=== PATIENT | male | born 1955 | race Caucasian/White ===

== ENCOUNTER 2018-10-08 12:48 | Emergency (ER) | payer MEDICARE, OTHER ==
[~2018-10-08] VITALS: Ht 172.7 cm; Wt 68.0 kg
[2018-10-08 13:11] VITALS: BP 101/67
--- NOTE | 2018-10-08 13:14 | NUR ---
[facility] SPECIMEN CUP PROVIDED. PATIENT SENT TO LOBBY TO WAIT FOR AVAILABLE BED.
[2018-10-08 13:58] LABS: APPEARANCE,URINE CLEAR (CLEAR); BILIRUBIN,URINE NEGATIVE (NEGATIVE); BLOOD, URINE TRACE-L (NEGATIVE); COLOR,URINE YELLOW (YELLOW); LEUKOCYTE ESTERASE ,URINE NEGATIVE (NEGATIVE); NITRITE, URINE NEGATIVE (NEGATIVE); UGLUCOSE NEGATIVE (NEGATIVE)
[2018-10-08 15:25] LABS: RBC,URINE 0-5 /HPF (0-5); WBC,URINE 0-5 /HPF (0-5)
--- NOTE | 2018-10-08 15:37 | NUR ---
Pt taken to bed 12.
[2018-10-08] MEDS ORDERED: MORPHINE SULFATE 4 MG/ML SYR IM ONE (16:10)
[2018-10-08] MEDS ORDERED: KETOROLAC 60 MG/2 ML VIAL IM ONE (16:10)
--- NOTE | 2018-10-08 16:55 | NUR ---
pt to ct via w[facility]
--- NOTE | 2018-10-08 16:55 | NUR ---
c/o worsening right sided lower back pain over 1 wk---denies any one recent incident that may have caused pain---denies incontinence, ambulatory with slow steady gait
--- NOTE | 2018-10-08 18:28 | NUR ---
Patient discharged with v/s stable. Written and verbal after care instructions given and explained. Patient alert, oriented and verbalized understanding of instructions. Ambulatory with steady gait. All questions addressed prior to discharge. ID band removed. Patient advised to follow up with PMD. Rx of TRAMADOL/COLACE given. Patient educated on indication of medication including possible reaction and side effects. Opportunity to ask questions provided and answered. CT READ HANDED TO PT
[2018-10-08 18:31] VITALS: BP 131/81
== END 2018-10-08 18:28 | disposition home or self-care (01) ==
LOC: MED 12:48
DX: M54.41 Lumbago with sciatica, right side (principal); M47.896 Other spondylosis, lumbar region; M51.36 Other intervertebral disc degeneration, lumbar region
CPT/HCPCS: 72131; 81001; 96372; 99284; J1885; J2270

== ENCOUNTER 2022-02-01 10:24 | Emergency (ER) | payer MEDICARE, OTHER ==
[~2022-02-01] VITALS: Ht 172.7 cm; Wt 64.1 kg
[2022-02-01 10:26] VITALS: BP 132/80
[2022-02-01] MEDS ORDERED: BENZ200C4 PO (11:54)
[2022-02-01] MEDS ORDERED: SUD30 PO (11:54)
[2022-02-01 11:59] VITALS: BP 143/70
== END 2022-02-01 11:59 | disposition home or self-care (01) ==
LOC: MED 10:24
DX: J06.9 Acute upper respiratory infection, unspecified (principal); Z20.822 Contact with and (suspected) exposure to COVID-19; Z79.899 Other long term (current) drug therapy; Z98.890 Other specified postprocedural states
CPT/HCPCS: 99283